=== PATIENT | male | born 1980 | race Caucasian/White ===

== ENCOUNTER → 2017-09-29 | Outpatient (REF) | payer OTHER | LOC: M SMT 13:02 | DX: Z30.2 Encounter for sterilization (principal) ==

== ENCOUNTER → 2018-03-07 | Outpatient (REF) | payer OTHER ==
[2018-03-07 12:52] LABS: SEMEN APPEARANCE OPAQUE (OPAQUE); SEMEN VOLUME 2.6 ml (4.0-5.0)
[2018-03-07 12:53] LABS: IMMMOTILE SPERM CENTRIFUGED ABSENT (ABSENT); IMMOTILE SPERM ABSENT (ABSENT); MOTILE SPERM ABSENT (ABSENT); MOTILE SPERM CENTRIFUGED ABSENT (ABSENT); SEMEN VISCOSITY LIQUID (LIQUID); WBC CONCENTRATION <=1 M/ml (<=1 M/ml)
== END ==
LOC: M SMT 12:10
DX: Z98.52 Vasectomy status (principal)

== ENCOUNTER → 2018-05-09 | Outpatient (REF) | payer OTHER ==
[2018-05-09 16:12] LABS: INFLUENZA B AMPLIFICATION NEGATIVE (NEGATIVE)
[2018-05-12 09:54] LABS: INFLUENZA A AMPLIFICATION POSITIVE (NEGATIVE)
== END ==
LOC: M LAB REF 15:25
PROVIDERS: ATTEND Physician Assistant Medical
DX: J11.1 Influenza due to unidentified influenza virus with other respiratory manifestations (principal)

== ENCOUNTER → 2021-01-06 | Outpatient (CLI) | payer OTHER ==
--- NOTE | 2021-01-08 04:09 | REP ---
INDICATION: LT FOOT PAIN. COMPARISON: None. TECHNIQUE: AP, lateral, oblique views of the left ankle FINDINGS: Minimal swelling. No acute fracture or dislocation. Small 3 mm corticated density at the medial malleolus may represent old injury. Ankle mortise intact. No subcutaneous emphysema or foreign body. IMPRESSION: No obvious acute fracture or dislocation. <Electronically signed by Dillon Avila > 01/08/21 [id number]
== END ==
LOC: M SOG 11:31
PROVIDERS: ATTEND Orthopaedic Surgery
DX: M25.572 Pain in left ankle and joints of left foot (principal)

== ENCOUNTER → 2021-05-02 | Outpatient (CLI) | payer OTHER | LOC: M PLAIMG 13:22 | PROVIDERS: ATTEND Orthopaedic Surgery | DX: S76.391A Other specified injury of muscle, fascia and tendon of the posterior muscle group at thigh level, right thigh, initial encounter (principal); X58.XXXA Exposure to other specified factors, initial encounter; Y92.9 Unspecified place or not applicable ==